=== PATIENT | female | born 1985 | race Caucasian/White ===

== ENCOUNTER 2021-02-15 12:56 | Emergency (ER) | payer OTHER ==
[~2021-02-15] VITALS: Ht 170.2 cm; Wt 104.3 kg
[2021-02-15] MEDS ORDERED: HYDROXYZINE PA100 MG PO (13:11)
== END 2021-02-15 14:25 | disposition home or self-care (01) ==
LOC: ED 12:56
DX: S61.211A Laceration without foreign body of left index finger without damage to nail, initial encounter (principal); W45.8XXA Other foreign body or object entering through skin, initial encounter; Y99.0 Civilian activity done for income or pay; E78.00 Pure hypercholesterolemia, unspecified; Z88.6 Allergy status to analgesic agent; Z79.899 Other long term (current) drug therapy
CPT/HCPCS: 12001; 99282-25